=== PATIENT | female | born 1960 | race Caucasian/White ===

== ENCOUNTER → 2020-04-12 | Outpatient (CLI) | payer OTHER | LOC: CARD 09:07 | PROVIDERS: ATTEND Family Medicine Adult Medicine | DX: R60.0 Localized edema (principal) | CPT/HCPCS: 93925; 93970 ==

== ENCOUNTER 2020-04-21 13:18 | Outpatient (RCR) | payer OTHER ==
[~2020-04-21 13:18] MED LIST: BALSAM PERU/CASTOR OIL 60 GM OINT...G. TP ONE; FLUOCINONIDE 0.05% 1 EA/15 GM TUBE ONE; LIDOCAINE VISC 2% SOLN 15 ML UDC ONE; MINERAL OIL/PETROLAT/GLYCERI 6OZ BTL ONE
[2020-04-21] MEDS ORDERED: TRYPSIN/BALSAM PERU/CASTOR OIL ONE (16:30)
[2020-04-21] MEDS ORDERED: FLUOCINONIDE 0.05% 1 EA/15 GM TUBE ONE (16:30)
== END 2020-04-23 ==
LOC: WCC 13:18
PROVIDERS: ATTEND Family Medicine Adult Medicine
DX: B35.1 Tinea unguium (principal); L60.3 Nail dystrophy; I82.409 Acute embolism and thrombosis of unspecified deep veins of unspecified lower extremity; I87.332 Chronic venous hypertension (idiopathic) with ulcer and inflammation of left lower extremity; I87.331 Chronic venous hypertension (idiopathic) with ulcer and inflammation of right lower extremity; L97.321 Non-pressure chronic ulcer of left ankle limited to breakdown of skin; L97.821 Non-pressure chronic ulcer of other part of left lower leg limited to breakdown of skin; L97.411 Non-pressure chronic ulcer of right heel and midfoot limited to breakdown of skin; L03.115 Cellulitis of right lower limb; I87.2 Venous insufficiency (chronic) (peripheral); L99 Other disorders of skin and subcutaneous tissue in diseases classified elsewhere; I89.0 Lymphedema, not elsewhere classified; R60.0 Localized edema; I10 Essential (primary) hypertension; K76.9 Liver disease, unspecified; F32.9 Major depressive disorder, single episode, unspecified

== ENCOUNTER → 2020-05-23 | Outpatient (RCR) | payer OTHER ==
[~2020-05-23] MED LIST changes: -BALSAM PERU/CASTOR OIL 60 GM OINT...G. TP ONE; -LIDOCAINE VISC 2% SOLN 15 ML UDC ONE; +TRYPSIN/BALSAM PERU/CASTOR OIL ONE
== END ==
LOC: WCC 04-28 14:54
PROVIDERS: ATTEND Family Medicine Adult Medicine
DX: B35.1 Tinea unguium (principal); I89.0 Lymphedema, not elsewhere classified; L60.3 Nail dystrophy; R60.0 Localized edema; L03.115 Cellulitis of right lower limb; I82.409 Acute embolism and thrombosis of unspecified deep veins of unspecified lower extremity; I87.2 Venous insufficiency (chronic) (peripheral); L99 Other disorders of skin and subcutaneous tissue in diseases classified elsewhere; I10 Essential (primary) hypertension; F32.9 Major depressive disorder, single episode, unspecified; K76.9 Liver disease, unspecified

== ENCOUNTER 2020-05-26 13:04 | Outpatient (RCR) | payer OTHER ==
[~2020-05-26 13:04] MED LIST changes: -FLUOCINONIDE 0.05% 1 EA/15 GM TUBE ONE; -TRYPSIN/BALSAM PERU/CASTOR OIL ONE
[2020-06-02] MEDS ORDERED: MINERAL OIL/PETROLAT/GLYCERI 6OZ BTL ONE (16:42)
== END 2020-06-23 ==
LOC: WCC 13:04
PROVIDERS: ATTEND Family Medicine Adult Medicine
DX: B35.1 Tinea unguium (principal); L60.3 Nail dystrophy; I82.409 Acute embolism and thrombosis of unspecified deep veins of unspecified lower extremity; I87.2 Venous insufficiency (chronic) (peripheral); I89.0 Lymphedema, not elsewhere classified; L03.115 Cellulitis of right lower limb; R60.0 Localized edema; L99 Other disorders of skin and subcutaneous tissue in diseases classified elsewhere; I10 Essential (primary) hypertension; K76.9 Liver disease, unspecified; F32.9 Major depressive disorder, single episode, unspecified

== ENCOUNTER 2020-06-02 14:48 | Outpatient (RCR) | payer OTHER | END 2020-06-23 | LOC: WCC 14:48 | PROVIDERS: ATTEND Family Medicine Adult Medicine | DX: B35.1 Tinea unguium (principal); L60.3 Nail dystrophy; I82.409 Acute embolism and thrombosis of unspecified deep veins of unspecified lower extremity; L03.115 Cellulitis of right lower limb; L99 Other disorders of skin and subcutaneous tissue in diseases classified elsewhere; I89.0 Lymphedema, not elsewhere classified; I87.2 Venous insufficiency (chronic) (peripheral); R60.0 Localized edema; I10 Essential (primary) hypertension; K76.9 Liver disease, unspecified; F32.9 Major depressive disorder, single episode, unspecified ==